=== PATIENT | female | born 2000 | race Two or more races ===

== ENCOUNTER 2024-11-06 15:48 | Inpatient (IN) | payer OTHER ==
[~2024-11-06] VITALS: Ht 165.1 cm; Wt 59.0 kg
[2024-11-06] MEDS ORDERED: KETOROLAC TROMETHAMINE 30 MG VIAL ONE ×2 (17:41→17:52)
[2024-11-06] MEDS ORDERED: ONDANSETRON HCL 2 MG/ML VIAL ONE (17:41)
[2024-11-06] MEDS ORDERED: METHYLPREDNISOLONE SOD SUCC 125 MG VIAL ONE ×2 (17:41→17:53)
[2024-11-06] MEDS ORDERED: METHYLPREDNISOLONE SOD SUCC 125 MG VIAL IV ONE (17:45)
[2024-11-06] MEDS ORDERED: 0.9 % SODIUM CHLORIDE 1,000 ML IV SCH ×2 (17:45→21:00)
[2024-11-06] MEDS ORDERED: KETOROLAC TROMETHAMINE 30 MG VIAL IV ONE (17:45)
[2024-11-06] MEDS ORDERED: ONDANSETRON HCL 2 MG/ML VIAL IV ONE (17:45)
[2024-11-06 17:59] LABS: BASO % 0.1 % (0.1-1.2); EOS # 0.00 (0.04-0.54); EOS % 0.0 % (0.7-7.0); LYMPH # 0.91 (1.18-3.74); LYMPH % 6.6 % (19.3-53.1); MEAN PLATELET VOLUME 10.50 fl (9.4-12.4); MONO # 1.60 (0.24-0.82); MONO % 11.5 % (4.7-12.5); NEUT # 11.28 (1.56-6.13); NEUT % 81.4 % (34.0-71.1); RED CELL DISTRIBUTION WIDTH 12.1 % (11.6-14.4)
[2024-11-06 18:23] LABS: ALT/SGPT 15.0 U/L (12-78); AST/SGOT 11.0 U/L (15-37); BILIRUBIN TOTAL 0.53 mg/dL (0.3-1.2); BUN CREA RATIO 9.0 (7.0-25.0); CREATININE SERUM 0.76 mg/dL (0.55-1.02); GFR 94.31; GLOBULINA 4.0 G/DL (2.4-3.5); GLUCOSE FASTING 89.0 mg/dL (65-100); OSMOLALITY SERUM 271.0 MOSM/KG (275-295)
[2024-11-06 19:21] LABS: URINE APPEARANCE Clear; URINE BILIRRUBIN Negative (NEGATIVE); URINE BLOOD Negative; URINE COLOR Yellow; URINE GLUCOSE Negative (NEGATIVE); URINE LEUKOCYTE Negative; URINE NITRATE Negative; URINE PROTEIN Trace (NEGATIVE); URINE UROBILINOGEN 1.0 E.U./dl
[2024-11-06 19:24] LABS: URINE BACTERIA 1998.9 uL (0.0-1933); URINE EPITHELIAL CELLS 30.9 uL (0.0-38.8); URINE RBC 18.3 uL (0.0-20.8); URINE WBC 20.6 uL (0.0-23.2)
[2024-11-06 19:31] LABS: URINE CAST 0.14 uL (0.0-1.40); URINE KETONE >=160 (NEGATIVE)
[2024-11-06] MEDS ORDERED: PIPERACILLIN/TAZOBACTAM SODIUM 3.375 GM VIAL IV ONE ×2 (20:36→20:45)
[2024-11-06] MEDS ORDERED: MORPHINE SULFATE 2 MG/ML SYRINGE IV PRN (21:00)
[2024-11-06] MEDS ORDERED: ONDANSETRON HCL 4 MG in 0.9 % SODIUM CHLORIDE 50 ML IV PRN (21:00)
[2024-11-06 21:22] LABS: INR 1.09
[2024-11-07] MEDS ORDERED: PIPERACILLIN/TAZOBACTAM SODIUM 3.375 GM in DEXTROSE 5 % IN WATER 100 ML IV SCH
[2024-11-07 00:40] VITALS: BP 100/60; O2SAT 100
[2024-11-07 07:53] VITALS: BP 94/53
[2024-11-07] MEDS ORDERED: FAMOTIDINE/PF 20 MG in 0.9 % SODIUM CHLORIDE 8 ML IV PUSH SCH (09:00)
[2024-11-07] MEDS ORDERED: BUPIVACAINE HCL/MPF 0.5% 30ML VIAL ONE (15:02)
[2024-11-07] MEDS ORDERED: PIPERACILLIN/TAZOBACTAM SODIUM 3.375 GM VIAL IV ONE ×2 (16:12→18:44)
[2024-11-07] MEDS ORDERED: SUGAMMADEX SODIUM 200 MG/2 ML VIAL IV ONE (16:36)
[2024-11-07] MEDS ORDERED: MORPHINE SULFATE 4 MG/ML VIAL IV ONE (18:30)
[2024-11-07 21:33] VITALS: BP 91/55; O2SAT 0
[2024-11-08 01:33] VITALS: BP 92/54; O2SAT 96
[2024-11-08 08:21] VITALS: BP 95/60
[2024-11-08] MEDS ORDERED: MORPHINE SULFATE 2 MG/ML CARTRIDGE IV PRN (10:45)
[2024-11-08] MEDS ORDERED: OxyCODONE HCL 5 MG TABLET (ROXICODONE) PO ONE (11:00)
== END 2024-11-08 16:28 | disposition home or self-care (01) | DRG 399 ==
LOC: ER 15:48 → MEDI 21:12
PROVIDERS: General Practice; Specialist; ADMIT Student in an Organized Health Care Education/Training Program; ATTEND Student in an Organized Health Care Education/Training Program
PROC: BW21YZZ Computerized Tomography (CT Scan) of Abdomen and Pelvis using Other Contrast (ICD-10-PCS; 2024-11-06)
PROC: 0DTJ4ZZ Resection of Appendix, Percutaneous Endoscopic Approach (ICD-10-PCS; principal; 2024-11-07 16:15)
DX: K36 Other appendicitis (principal)